=== PATIENT | female | born 1980 | race Caucasian/White ===

== ENCOUNTER 2017-09-18 19:44 | Emergency (ER) | payer OTHER ==
[~2017-09-18] VITALS: Ht 160 cm; Wt 83.9 kg
[~2017-09-18 19:44] MED LIST: ELA10 PO; MOT400 PO; TEG200 PO
[2017-09-18 19:50] VITALS: Ht 160 cm; Wt 83.9 kg
[2017-09-18 21:39] VITALS: BP 130/56
== END 2017-09-18 21:39 | disposition home or self-care (01) ==
LOC: ED 19:44
DX: R07.89 Other chest pain (principal); R42 Dizziness and giddiness; R06.00 Dyspnea, unspecified; Z88.6 Allergy status to analgesic agent; Z88.8 Allergy status to other drugs, medicaments and biological substances; Z88.5 Allergy status to narcotic agent; Z88.1 Allergy status to other antibiotic agents

== ENCOUNTER 2018-04-14 08:22 | Emergency (ER) | payer OTHER ==
[~2018-04-14] VITALS: Ht 160 cm; Wt 84.8 kg
[2018-04-14 08:26] VITALS: Ht 160 cm; Wt 84.8 kg
[2018-04-14 10:48] VITALS: BP 120/78
== END 2018-04-14 10:48 | disposition home or self-care (01) ==
LOC: ED 08:22
DX: J06.9 Acute upper respiratory infection, unspecified (principal); Z88.5 Allergy status to narcotic agent; Z88.6 Allergy status to analgesic agent; Z88.8 Allergy status to other drugs, medicaments and biological substances
CPT/HCPCS: Q0092; Q0162